=== PATIENT | male | born 1945 | race Caucasian/White ===

== ENCOUNTER 2024-06-12 13:01 | Emergency (ER) | payer OTHER ==
[~2024-06-12] VITALS: Ht 180.3 cm; Wt 172.0 kg
[2024-06-12] MEDS: ONDANSETRON HCL 4 MG/2 ML VIAL IV ONE ×2 (13:35→19:30)
--- NOTE | 2024-06-12 13:50 | ED.PDOC ---
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 this am suddenly started to have nausea, vomiting, spinning sensation. nothing worsens or relieves. no headache. he also has decreased hearing Time Seen by MD: 13:27 Primary Care Provider: HUBER BURCH Reviewed Notes: Nurses Notes, Physician Industrial Notes, Medications, Allergies Allergies: Coded Allergies: NO KNOWN ALLERGIES (Unverified , 06/12/24) Information Source: Patient, Emergency Med Personnel Mode of Arrival: EMS Severity: Moderate Timing: Hours Duration: Intermittent Past Medical History Past Medical History (Other): polio, paralysis Surgical History: Denies all surgeries Family History Family History: Reviewed,noncontributory to illness, No family hx of Cancer, No family hx of DM, No family hx of Heart neha, No family hx of HTN, No family hx ofKidney neha, No family hx of Liver neha, No family hx of Lung neha, No family hx of Stroke Social History Smoker: Non-Smoker Alcohol: Denies ETOH Use Drugs: Denies Drug Use Constitutional: denies: chills, diaphoresis, fatigue, fever, malaise, sweats, weakness, others EENTM: denies: blurred vision, double vision, ear bleeding, ear discharge, ear drainage, ear pain, ear ringing, eye pain, eye redness, hearing loss, mouth pain, mouth swelling, nasal discharge, nose bleeding, nose congestion, nose pain, photophobia, tearing, throat pain, throat swelling, voice changes, others Respiratory: denies: cough, hemoptysis, orthopnea, SOB at rest, shortness of breath, SOB with excertion, stridor, wheezing, others Cardiovascular: denies: chest pain, dizzy spells, diaphoresis, Dyspnea on exertion, edema, irregular heart beat, left arm pain, lightheadedness, palpitations, PND, syncope, others Gastrointestinal: denies: abdomen distended, abdominal pain, blood streaked bowels, constipated, diarrhea, dysphagia, difficulty swallowing, hematemesis, melena, nausea, poor appetite, poor fluid intake, rectal bleeding, rectal pain, vomiting, others Neurological: reports: dizziness, others (paralysis from the waist down) Musculoskeletal: denies: back pain, gout, joint pain, joint swelling, muscle pain, muscle stiffness, neck pain, others Integumetry: denies: bruises, change in color, change in hair/nails, dryness, laceration, lesions, lumps, rash, wounds, others Allergic/Immunocompromised: denies: Difficulty Healing, Frequent Infections, Hives, Itching, others Hematologic/Lymphatic: denies: anemia, blood clots, easy bleeding, easy br uising, swollen glands, others Psychiatric: denies: anxiety, bipolar disorder, depression, hopeless, panic disorder, schizophrenia, sleepless, suicidal, others All Other Systems: Reviewed and Negative Physical Exam General Appearance: No Apparent Distress, Normal HEENT: Normal ENT Inspection, Pharynx Normal, TMs Normal Neck: Full Range of Motion, Non-Tender, Normal, Normal Inspection Respiratory: Chest Non-Tender, Lungs Clear, No Accessory Muscle Use, No Respiratory Distress, Normal Breath Sounds Cardiovascular: No Edema, No JVD, No Murmur, No Gallop, Normal Peripheral Pulses, Regular Rate/Rhythm Breast Exam: Deferred Gastrointestinal: No Organomegaly, Non Tender, No Pulsatile Mass, Normal Bowel Sounds, Soft Genitalia: Deferred Pelvic: Deferred Rectal: Deferred Extremities: No calf tenderness, Normal capillary refill, Normal inspection, Normal range of motion, Non-tender, No pedal edema Musculoskeletal : Apperance: Normal Neurologic: Alert, capacitor repairer II-XII nml as Tested, Normal Affect, Normal Mood, No Sensory Deficits, Other (horizontal nystagmus, with fast phase on left. ) Cerebellar Function: Normal Reflexes: Normal Skin: Dry, Normal Color, Warm Lymphatic: No Adenopathy Was a procedure done? Was a procedure done?: No EKG EKG : Pulse Rate (adult): 73 [place]: Normal Cardiac Rhythm: NSR Block: RBBB Hypertrophy: None ST: Normal Differential Dx Considerations may include: cva, miniere's disease, labyrinthitis, BPV X-Ray, Labs, Meds, VS Vital Signs Date Time Temp Pulse Resp B/P (MAP) Pulse Ox O2 Delivery O2 Flow Rate FiO2 06/13/24 03:31 88 14 130/73 (92) 92 06/13/24 02:07 86 14 128/82 (97) 98 06/13/24 00:00 81 06/12/24 23:34 79 14 132/84 (100) 96 06/12/24 21:21 82 12 96 Nasal Cannula* 2 28 06/12/24 21:20 76 12 114/71 (85) 95 06/12/24 20:21 75 06/12/24 19:42 82 12 121/88 (99) 96 06/12/24 18:00 85 14 96 Nasal Cannula* 2 28 06/12/24 17:52 70 13 166/90 (115) 95 06/12/24 17:15 73 06/12/24 16:51 97.7 75 18 152/71 (98) 93 97.7 06/12/24 14:42 82 16 92 Nasal Cannula 2.0 06/12/24 14:42 97.4 82 16 142/77 (98) 92 97.4 06/12/24 14:36 73 06/12/24 13:26 98.5 68 18 178/82 (114) 92 Lab Test 06/12/24 17:57 06/12/24 15:28 06/12/24 14:23 Range/Units Troponin I High Sensitivity 8 7 7 </=54 ng/L White Blood Count 6.0 4.4-10.8 10^3/uL Red Blood Count 4.06 L 4.5-5.90 10^6/uL Hemoglobin 13.8 13.5-17.5 g/dL Hematocrit 40.6 L 41.0-53.0 % Mean Corpuscular Volume 100.0 80.0-100.0 fL Mean Corpuscular Hemoglobin 34.0 H 28.0-32.0 pg Mean Corpuscular Hemoglobin Concent 34.0 32.0-36.0 g/dL Red Cell Distribution Width 13.8 11.8-14.3 % Platelet Count 175 140-450 10^3/uL Mean Platelet Volume 7.5 6.9-10.8 fL Neutrophils (%) (Auto) 82.2 H 37.0-80.0 % Lymphocytes (%) (Auto) 11.3 10.0-50.0 % Monocytes (%) (Auto) 4.9 0.0-12.0 % Eosinophils (%) (Auto) 1.4 0.0-7.0 % Basophils (%) (Auto) 0.2 0.0-2.0 % Neutrophils # (Auto) 4.9 1.6-8.6 10 ^3/uL Lymphocytes # (Auto) 0.7 0.4-5.4 10 ^3/uL Monocytes # (Auto) 0.3 0-1.3 10 ^3/uL Eosinophils # (Auto) 0.1 0-0.8 10 ^3/uL Basophils # (Auto) 0 0-0.2 10 ^3/uL Nucleated Red Blood Cells 0.1 % Sodium Level 144 136-145 mmol/L Potassium Level 3.6 3.5-5.1 mmol/L Chloride Level 110 H 98-107 mmol/L Carbon Dioxide Level 31 20-31 mmol/L Anion Gap 3 L 5-15 Blood Urea Nitrogen 17 9-23 mg/dL Creatinine 0.57 L 0.700-1.30 mg/dL Glomerular Filtration Rate Calc 101 >90 mL/min BUN/Creatinine Ratio 29.8 H 10.0-20.0 Serum Glucose 115 H 74-106 mg/dL Calcium Level 9.1 8.7-10.4 mg/dL Current Medications Medications (Trade) Dose Ordered Sig/Cassandra Route Start Time Stop Time Status Last Admin Ondansetron HCl (Zofran) 4 mg ONCE ONCE IV 06/12/24 13:30 06/12/24 13:31 DC 06/12/24 13:35 Meclizine HCl (Antivert Tablet) 25 mg ONCE ONCE PO 06/12/24 13:45 06/12/24 13:46 DC 06/12/24 14:17 Alprazolam (Xanax Tablet) 0.25 mg ONCE ONCE PO 06/12/24 13:45 06/12/24 13:46 DC 06/12/24 14:17 Ondansetron HCl (Zofran) 4 mg ONCE ONCE IV 06/12/24 17:30 06/12/24 17:39 DC 06/12/24 19:30 Meclizine HCl (Antivert Tablet) 50 mg ONCE ONCE PO 06/12/24 17:30 06/12/24 17:39 DC 06/12/24 19:30 Alprazolam (Xanax Tablet) 0.5 mg ONCE ONCE PO 06/12/24 17:30 06/12/24 17:39 DC 06/12/24 19:30 X-Ray, Labs, Meds, VS Comment Case discussed with Dr. Modi at [facility] who will arrange for transfer. Patient is currently stable. Authorization [id number]. Time of 1ST Reevaluation: 17:14 Reevaluation 1ST: Unchanged (cardiac rhthm- nsr) Time of 2ND Reevaluation: 17:21 Reevaluation 2ND: Unchanged (pt was feeling better but withthe slightest movement, symptoms recurred) Patient Education/Counseling: Diagnosis, Treatment, Prognosis, Need For Follow Up Family Education/Counseling: No Family Present Comments due to concerns for a central cause of th severe and intractable nausea, vomiting, vertigo, i reassessed him often and confirmed that medications do control his symptoms, but with the slightest movement, his symptoms would recur. i will consult [facility] to admit him for further treatments. the head ct is unremarkable and the fact that he does not have changing or rotary nystagmus, and has no other neurologic symptoms, other than decreased in hearing, makes a central cause less likely, but he will need a MRI i will sign out to Dr Gosia Vang to speak to [facility] Departure 1 Departure Time of Disposition: 17:11 Impression: Primary Impression: Vertigo Additional Impression: Intractable nausea and vomiting Disposition: 02 SHORT TERM HOSPITAL Admit to: Tele Condition: Serious Critical Care Note Critical Care Time?: Yes (55 min-critical care time only) Critical care comment: Due to concerns for patients condition deteriorating, the care required my highest level of attention and readiness to intervene. I assessed the patient, reviewed the medical records, ordered the appropriate tests and treatments, then reassessed for results and responsiveness. I communicated with medical personnel and consultants and formulated a plan of care. Total critical care time excludes any procedures Stability Stability form required: No Heart Score Heart Score: Heart Score Response (Comments) Value History N/A 0 EKG N/A 0 Age N/A 0 Risk Factors N/A 0 Troponin N/A 0 Total 0 ISRAEL ROBERTSON MD Jun 12, 2024 13:50 MESSI CLARKE MD Jun 12, 2024 18:53
--- NOTE | 2024-06-12 14:04 | DVH ---
EXAM: CT HEAD WITHOUT CONTRAST HISTORY: vertigo COMPARISON: None TECHNIQUE: Axial images of the head were obtained and reformatted in coronal and sagittal planes. All CT scans at this medical facility are performed using dose modulation techniques as appropriate t o a performed exam including the following: Automated exposure control was utilized; adjustment of th e MA and/or KV according to patient size; and use of iterative reconstruction technique. CT Dose: CTDI volume is 69.83 mGy. Dose-length product is 1375.64 mGy*cm FINDINGS: There is no evidence of acute intracranial hemorrhage, mass, mass effect midline shift. There is no h ydrocephalus or extra-axial fluid collection. Burkett-white matter differentiation is maintained. Mucosal thickening in the right maxillary sinus. The mastoid air cells are clear. The calvarium is intact. IMPRESSION: 1. No acute intracranial process. HS:Y
--- NOTE | 2024-06-12 14:14 | DVH ---
CHEST RADIOGRAPH Indication: vertigo Technique: Single frontal view of the chest was obtained COMPARISON: None FINDINGS: Lines and Tubes: None Lungs: Congestion Pleura: Small right pleural effusion. No pneumothorax. Cardiomediastinal contours: Cardiomegaly Bones: Unremarkable IMPRESSION: Pulmonary vascular congestion
[2024-06-12] MEDS: MECLIZINE HCL 25 MG TAB PO ONE ×2 (14:17→19:30)
[2024-06-12] MEDS: ALPRAZolam 0.25 MG TAB PO ONE (14:17)
[2024-06-12 14:40] LABS: Basophils # (auto) 0 10 ^3/uL (0-0.2); Basophils % (auto) 0.2 % (0.0-2.0); Eosinophils # (auto) 0.1 10 ^3/uL (0-0.8); Eosinophils % (auto) 1.4 % (0.0-7.0); Hematocrit 40.6 % (41.0-53.0); Hemoglobin 13.8 g/dL (13.5-17.5); Lymphocytes # (auto) 0.7 10 ^3/uL (0.4-5.4); Lymphocytes % (auto) 11.3 % (10.0-50.0); Monocytes # (auto) 0.3 10 ^3/uL (0-1.3); Monocytes % (auto) 4.9 % (0.0-12.0); Neutrophils # (auto) 4.9 10 ^3/uL (1.6-8.6); Neutrophils % (auto) 82.2 % (37.0-80.0); Nucleated Red Blood Cells % 0.1 %; Platelet Count (auto) 175 10^3/uL (140-450); Red Blood Cells 4.06 10^6/uL (4.5-5.90); Red Cell Distribution Width 13.8 % (11.8-14.3)
[2024-06-12 14:49] LABS: Potassium 3.6 mmol/L (3.5-5.1); Sodium 144 mmol/L (136-145)
[2024-06-12 14:50] LABS: Anion Gap 3 (5-15); Calcium 9.1 mg/dL (8.7-10.4); Carbon Dioxide 31 mmol/L (20-31)
[2024-06-12 14:55] LABS: BUN/Creatinine Ratio 29.8 (10.0-20.0); Blood Urea Nitrogen 17 mg/dL (9-23)
[2024-06-12 14:59] LABS: Chloride 110 mmol/L (98-107); Glucose 115 mg/dL (74-106)
[2024-06-12 18:00] VITALS: PULSE 85; RESP 14; O2SAT 96
--- NOTE | 2024-06-12 18:50 | ECG ---
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
[2024-06-12] MEDS: ALPRAZolam 0.5 MG TAB PO ONE (19:30)
[2024-06-12 21:21] VITALS: PULSE 82; RESP 12; O2SAT 96
[2024-06-13 08:00] VITALS: PULSE 83; RESP 17; O2SAT 93
[2024-06-13 09:42] VITALS: BP 117/62; PULSE 87; RESP 14; TEMP 97.7; O2SAT 93
== END 2024-06-13 09:49 | disposition short-term general hospital (02) ==
LOC: ER 13:01 → EDBD 13:01 → ER 06-13 09:49
DX: R42 Dizziness and giddiness (principal); R11.2 Nausea with vomiting, unspecified
CPT/HCPCS: 36415; 70450; 71045; 80048; 84484; 85025; 93005; 96374; 96376; 99285; J2405; J8597